=== PATIENT | female | born 1940 | race Caucasian/White ===

== ENCOUNTER 2017-04-22 23:49 | Emergency (ER) | payer MEDICARE ==
[2017-04-23] MEDS ORDERED: ACETAMINOPHEN-CODEINE 300/30MG TAB ONE (00:56)
== END 2017-04-23 01:01 | disposition home or self-care (01) ==
LOC: EDH 23:49
DX: S52.592A Other fractures of lower end of left radius, initial encounter for closed fracture (principal); W18.39XA Other fall on same level, initial encounter; Y93.01 Activity, walking, marching and hiking; Y92.098 Other place in other non-institutional residence as the place of occurrence of the external cause; Y99.8 Other external cause status
CPT/HCPCS: 29125; 73110